=== PATIENT | male | born 1985 | race African-American/Black ===

== ENCOUNTER 2017-05-13 20:37 | Emergency (ER) | payer SELFPAY ==
[~2017-05-13] VITALS: Ht 177.8 cm; Wt 63.5 kg
[~2017-05-13 20:37] MED LIST: CYCL10TA2 PO; HYDR-971 PO; HYDR28CR15 TP; METH-37 PO; NAPR-683 PO; OMEP20CA9 PO
[2017-05-13 20:47] VITALS: BP 150/95
--- NOTE | 2017-05-13 21:01 | EKG ---
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
[2017-05-13] MEDS ORDERED: IBUPROFEN 800 MG TABLET. PO ONE (21:30)
[2017-05-13] MEDS ORDERED: IPRATRPIUM/ALBUTEROL 0.5/2.5MG 3 ML NEBU. NEB ONE (21:30)
--- NOTE | 2017-05-14 07:11 | RAD ---
Indication: Cough and chest pain. Time of exam 2113 hours. FINDINGS: The heart size is normal. The lungs are clear. No pleural effusion or pneumothorax is identified. The pulmonary vascularity is normal. IMPRESSION: No acute abnormality detected.
== END 2017-05-13 21:49 | disposition home or self-care (01) ==
LOC: ER 20:37
DX: R07.89 Other chest pain (principal); J45.909 Unspecified asthma, uncomplicated; F12.10 Cannabis abuse, uncomplicated; Z79.899 Other long term (current) drug therapy
CPT/HCPCS: 71020; 93005; 94640; 99284; J7620